=== PATIENT | female | born 1945 | race Caucasian/White ===

== ENCOUNTER → 2019-09-16 | Outpatient (CLI) | payer OTHER ==
[~2019-09-16] MED LIST: ALLOPURINOL 30300 M1 PO; KEFLEX250 MG PO; LORTAB 5 MG/5001 TA1 PO; SYNTHROID125 MCG PO
== END ==
LOC: M.LAB 07:52
PROVIDERS: ATTEND Internal Medicine Gastroenterology
DX: Z01.812 Encounter for preprocedural laboratory examination (principal); Z11.59 Encounter for screening for other viral diseases; Z80.0 Family history of malignant neoplasm of digestive organs; Z86.010 Personal history of colon polyps